=== PATIENT | male | born 2000 | race Caucasian/White ===

== ENCOUNTER 2024-05-05 21:33 | Emergency (ER) | payer OTHER ==
[~2024-05-05] VITALS: Ht 182.9 cm; Wt 59.0 kg
[2024-05-05 21:37] VITALS: BP 115/71
[2024-05-05 21:45] VITALS: BP 123/70
[2024-05-05] MEDS ORDERED: FAMOTIDINE 10MG/ML 2ML SDV IV ONE (21:55)
[2024-05-05] MEDS ORDERED: MORPHINE SULFATE 4 MG/ML VIAL IV ONE (21:55)
[2024-05-05 22:00] VITALS: BP 115/67
[2024-05-05 22:10] LABS: BASO% 0.2 % (0-3); HEMOGLOBIN 14.3 g/dl (14.0-18.0); IMMATURE GRANULOCYTES 0.2 % (0.0-5.0); LYMPH% 5.8 % (15-41); MEAN CELL VOLUME 86.5 fL CALC (80.0-100.0); MEAN CORPUSCULAR HGB 30.2 pG CALC (26.0-32.0); MEAN CORPUSCULAR HGB CONC 34.9 g/dL CAL (32.0-36.0); NEUT# 11.05 thou/uL (1.82-7.42); NEUT% 84.8 % (42-76); RED BLOOD COUNT 4.74 mill/uL (4.70-6.10); RED CELL DISTRI WIDTH 12.4 % (11.5-15.5)
[2024-05-05 22:27] LABS: ALBUMIN 4.7 g/dL (3.2-5.0); BILIRUBIN, TOTAL 1.1 mg/dL (0.2-1.3); CREATININE 1.1 mg/dL (0.7-1.3); POTASSIUM 4.9 mmol/l (3.5-5.1)
[2024-05-05 22:30] VITALS: BP 121/66
[2024-05-05 23:29] VITALS: BP 122/77
[2024-05-05 23:34] VITALS: BP 107/61
[2024-05-06] VITALS: BP 101/56
[2024-05-06 00:30] VITALS: BP 114/55
[2024-05-06] MEDS ORDERED: REGLAN10 MG PO (01:16)
[2024-05-06] MEDS ORDERED: MOTRIN800 MG PO (01:16)
[2024-05-06 01:19] VITALS: BP 115/67
[2024-05-06 01:23] LABS: URINE BILIRUBIN - DIPSTICK Negative (NEGATIVE); URINE BLOOD DIPSTICK Negative (NEGATIVE); URINE GLUCOSE - DIPSTICK Negative (NEGATIVE); URINE KETONE 15 mg/dL (NEGATIVE); URINE LEUK ESTERASE Negative (NEGATIVE); URINE NITRITE - DIPSTICK Negative (Negative); URINE PROTEIN - DIPSTICK 30 mg/dL (NEG-TRACE); URINE SPECIFIC GRAVITY 1.015; URINE UROBILINOGEN - DIPSTICK 0.2 E.U./dL (0.2)
[2024-05-06 01:24] LABS: URINE COLOR Yellow
[2024-05-06 01:30] VITALS: BP 112/68
[2024-05-06 01:37] VITALS: BP 112/68
[2024-05-06 01:43] LABS: URINE RBC 0-2 RBC/hpf (0-5); URINE SQUAMOUS EPITHELIAL CELL FEW EPI/hpf (0-FEW); URINE WBC 0-2 WBC/hpf (0-5)
== END 2024-05-06 01:37 | disposition home or self-care (01) | DRG 90 ==
LOC: ED 21:33
PROVIDERS: Emergency Medicine
DX: S06.0X0A Concussion without loss of consciousness, initial encounter (principal); S00.83XA Contusion of other part of head, initial encounter; G93.0 Cerebral cysts; V80.018A Animal-rider injured by fall from or being thrown from other animal in noncollision accident, initial encounter; Y93.89 Activity, other specified; Y92.39 Other specified sports and athletic area as the place of occurrence of the external cause
CPT/HCPCS: Q9967